=== PATIENT | male | born 2000 | race Caucasian/White ===

== ENCOUNTER 2024-10-21 09:58 | Emergency (ER) | payer BC, SELFPAY ==
[2024-10-21 10:13] VITALS: BP 136/92
[2024-10-21 10:35] LABS: Hematocrit 44.6 % (39.0-52.0); Hemoglobin 16.0 g/dL (13.0-18.0); Mean Corp Hgb Conc. 35.9 g/dL (33.0-37.0); Mean Corpuscular Volume 87.1 fL (80.0-94.0); Nucleated Red Blood Cells % 0 % (-); Platelet Count 252 10^3/uL (130-400); Red Cell Dist. Width 11.4 % (11.5-14.5)
[2024-10-21 10:59] LABS: ALT (SGPT) 79 U/L (0-50); AST (SGOT) 45 U/L (17-59); Albumin 5.4 g/dl (3.5-5.0); Alkaline Phosphatase 80 U/L (38-126); Blood Urea Nitrogen 10 mg/dl (9-20); Calcium 9.6 mg/dl (8.4-10.2); Carbon Dioxide 20 mmol/L (22-30); Chloride 106 mmol/L (98-107); Glucose 89 mg/dl (70-99); Potassium 4.1 mmol/L (3.5-5.1); Sodium 139 mmol/L (135-145); Total Protein 9.0 g/dl (6.3-8.2); eGFR > 60.00
[2024-10-21 11:11] LABS: Troponin I < 0.012 ng/ml
[2024-10-21 11:45] VITALS: BP 134/93
[2024-10-21 12:00] VITALS: BP 120/72
[2024-10-21 12:35] LABS: Lipase 63 U/L (23-300)
[2024-10-21 13:13] VITALS: BP 137/99
[2024-10-21 13:15] VITALS: BMI 28.5
[2024-10-21 14:00] VITALS: BP 127/77
--- NOTE | 2024-10-21 14:18 | ED.GENMED ---
History of Present Illness
General
Chief Complaint: Chest Pain
Source: patient
Exam Limitations: none
Time Seen by Provider: 10/21/24 11:38
Nursing documentation reviewed up to this point in time: agreed with
History of Present Illness
History of Present Illness:
24-year-old male with no reported chronic medical issues presents to the ER for evaluation of chest pains. Patient reports that symptoms started about a week and a half ago and have been constant since that time. He reports initially he had some
vague aching in the right chest that over the past few days has migrated more towards the left chest. No clear triggering or relieving factors noted�she says occasionally it is triggered by position but not consistently. He denies any associated
shortness of breath. He has had occasional palpitations. He has had some nausea but no vomiting. No abdominal pain. He denies any swelling or pain in the legs. He denies any other acute complaints. He reports family history of hypertrophic
cardiomyopathy but reports that he had an echocardiogram a few months ago that was reportedly normal.
Review of Systems
Review of Systems
All Other Systems: ROS reviewed and negative except as documented in HPI and ROS
Constitutional: Denies fever
Respiratory: Denies cough or trouble breathing
Cardiac: Reports chest pain and palpitations; Denies diaphoresis or syncope
ABD/GI: Reports nausea; Denies abdominal pain or vomiting
: Denies flank pain
Musculoskeletal: Denies edema, neck pain or back pain
Neurological: Denies headache
Phy Exam
Physical Exam
Physical Exam:
General: Awake, alert, oriented x3; no acute distress
Head: Normocephalic, atraumatic
Eyes: Conjunctiva normal, EOMI, sclera anicteric
Throat: Airway intact, handling secretions
Neck: Trachea midline, supple without meningismus
Lungs: Clear to auscultation bilaterally, no wheezing, rales, rhonchi
Heart: Regular rate and rhythm, no murmurs, gallops, or rubs
Abd: Soft, non distended, nontender
Neuro: Cranial nerves grossly intact, speech fluid
Skin: no rash
Extremities: No edema in extremities, equal pulses in all extremities
Scores
Heart Failure Risk
Heart Failure Risk Score: Not Applicable
Heart Score for Chest Pain Patients
STEMI patient?: No
History: Slightly or Non-Suspicious
ECG: Normal
Age: </= 45 years
Risk Factors: No Risk Factors
Troponin: </= Normal Limit
Heart Score for Chest Pain Patients: 0
Heart Score Risk: 2.5% MACE over next 6 weeks
PERC Rule Criteria
Age <50 years: Yes
HR <100 bpm: Yes
Room air oxygen sat >94%: Yes
History of DVT or PE: No
Recent trauma or surgery: No
Hemoptysis: No
Exogenous estrogen: No
Clinical signs suggestive of DVT: No
: No
Considered low risk for PE: Yes
PERC Score: 0
PE can be excluded by PERC: Yes
Withdrawal Assessment of Alcohol
Withdrawal Assessment Completed?: Not applicable
Course
Orders/Labs/Results
Orders:
Orders
10/21/24 10:18
ECG [Electrocardiogram (*1)] Urgent
Reason for Study: Chest Pain
10/21/24 10:19
EKG- Treatment ONCE
10/21/24 10:26
Complete Blood Count/With Diff Urgent
Comprehensive Metabolic Panel Urgent
Lipase Urgent
Comment: ADD ON
Troponin I Urgent
10/21/24 12:02
Add On- LAB Urgent
Tests Added?: lipase
CR Chest - 2 Views Urgent
Comment:
Reason For Exam: chest pain
10/21/24 12:13
US Abdomen Complete/Upper Urgent
Comment:
Reason For Exam: chest pain, abnormal LFTs
Abnormal Lab Results
10/21/24
10:26
MCH 31.3 H pg
(27.0-31.0)
RDW 11.4 L %
(11.5-14.5)
MPV 11.3 H fL
(7.4-10.4)
Absolute Monos (auto) 1.0 H 10^3/uL
(0.1-0.6)
Monocytes % 12.3 H %
(1.7-9.3)
Carbon Dioxide 20 L mmol/L
(22-30)
Total Bilirubin 2.8 H mg/dl
(0.2-1.3)
ALT 79 H U/L
(0-50)
Total Protein 9.0 H g/dl
(6.3-8.2)
Albumin 5.4 H g/dl
(3.5-5.0)
10/21/24 10:26
10/21/24 10:26
Vital Signs
Initial and Last Documented VS:
Initial Vital Signs
Temp Pulse Resp BP Pulse Ox
36.9 C 69 15 136/92 99
10/21/24 10:13 10/21/24 10:13 10/21/24 10:13 10/21/24 10:13 10/21/24 10:13
Last Documented Vital Signs
Temp Pulse Resp BP Pulse Ox
36.9 C 72 14 127/77 99
10/21/24 10:13 10/21/24 14:00 10/21/24 14:00 10/21/24 14:00 10/21/24 14:00
MDM/Problems Addressed
Differential Diagnosis Includes:
GERD, costochondritis, pneumothorax, myocarditis/ACS considered less likely, dysrhythmia; very low suspicion for PE clinically and patient is PERC negative�no indication for further workup in my judgment
MDM/Problems Addressed:
24-year-old male presents for evaluation of atypical chest discomfort associated with occasional palpitations and some nausea over the past week and a half. Vitals and exam as above. EKG shows sinus rhythm with no acute ischemia. Labs were sent
off including a CBC and a CMP�CMP was notable for marginally elevated T. bili and ALT; AST normal. Lipase normal. Troponin undetectable and sufficient to rule out acute ID with consistent symptoms for over a week. Sent for chest x-ray which showed
no acute abnormalities. Sent for an abdominal ultrasound to follow-up on abnormal LFTs which showed some mild fatty infiltration of the liver. I wonder if symptoms could be more related to GERD/esophagitis. Patient is in college and admits to
heavy alcohol use on the weekend. Advised to discontinue alcohol use. Advised to trial Pepcid. Follow-up with primary care physician. At this point stable for discharge�patient comfortable with this plan. Provided copy of reports for follow-up.
All questions answered.
*Radiology
Radiology exam reviewed: preliminary read by ED provider and radiology read reviewed
*Pulse Oximetry
SaO2: 99
Oxygen Mode of Delivery: Room air
Patient hypoxic: no (99%)
*EKG
Interpreted by ED Provider?: Yes
Heart Rate: 68
Rate: normal
Rhythm: sinus
[place]: normal axis
Interval: normal interval
QRS Pattern: normal QRS
Ischemia: no ischemia
*Critical Care Note
Total Time (30-74mins, 75-104mins- exclusive of procedures): Not Applicable
Data Reviewed
Source: patient and family (mother)
ED Attending Note
-
Portions of this chart may have been created with voice recognition software.� Occasional wrong word or��sound alike� substitutions may have occurred due to the inherent limitations of voice recognition software.
Discharge Plan
Departure
Patient Disposition: Home (Routine Discharge)
Date of Disposition: 10/21/24
Time of Disposition: 14:01
Patient with high blood pressure during this ER visit?: Yes
Discharge Problem:
Chest pain, Fatty infiltration of liver
Instructions: Chest Pain PCP Follow Up
Referrals:
Carla Sparrow PA-C [Family Provider, Family Practice] - Follow up in 1 week
Activity Restrictions/Additional Instructions:
Thank you for visiting the Emergency Department at [facility].
1. Please schedule a follow up appointment as directed. Call first thing tomorrow morning to make an appointment.
2. If indicated, please take your medications as instructed and indicated on discharge paperwork.
3. If any of your symptoms do not improve, or persist, or become more severe within 6-12 hours, please return to the emergency department for further care.
4. Please return to the emergency department if you develop a headache, neck pain/stiffness, fever greater than 100.4F, chest pain, shortness of breath, persistent nausea, vomiting, slurred speech, difficulty walking, numbness/tingling, weakness,
signs of infection or any other symptoms that are worrisome to you.
Please call [phone] if you have any questions.
Interventions
Interventions:
*Risk Screen - Suicide Last Done: 10/21/24 10:17
*General Assessment Last Done: 10/21/24 10:17
*Neglect/Abuse Screening Last Done: 10/21/24 13:16
*ED- Fall Risk Assessment Last Done: 10/21/24 13:15
*ED COVID-19 Vaccine History Last Done: 10/21/24 13:15
ED- Cardiac Assessment Last Done: 10/21/24 13:19
Discharge Date and Time
Print Language: CANADIAN
== END 2024-10-21 14:29 | disposition home or self-care (01) ==
LOC: EMR 09:58
PROVIDERS: Emergency Medicine; EMERGENCY PHYSICIAN Emergency Medicine; FAMILY PHYSICIAN Physician Assistant Medical
DX: R07.89 Other chest pain (principal); K76.0 Fatty (change of) liver, not elsewhere classified; R00.2 Palpitations
CPT/HCPCS: 99285; 71046; 76700; 80053; 83690; 84484; 85025; 93005